=== PATIENT | female | born 1965 | race Two or more races ===

== ENCOUNTER 2025-04-03 03:26 | Inpatient (IN) | payer BC, SELFPAY ==
[2025-04-03] VITALS (18 sets, daily range): BP systolic 116–160; BP diastolic 59–91; PULSE 66–83; RESP 12–97; TEMP 36.2–37.2; O2SAT 92–100; BMI 25.4
--- NOTE | 2025-04-03 03:53 | XR_ITS ---
Examination: Abdomen sonogram, Limited Date and time of exam: April 03, 2025, 0412 hours INDICATIONS: Right upper abdominal pain beginning midnight Technique: Real-time daly scale transabdominal sonographic images of the upper abdomen obtained. Findings: Multiple gallstones Gallbladder wall 0.34 cm no edema Common bile duct 0.3 cm Pancreatic head 2.5 cm Liver 13.7 cm no liver lesions Normal hepatopetal portal venous flow Patent IVC IMPRESSION: Cholelithiasis Minimal thickening of the gallbladder wall 0.34 cm without edema, clinical correlation advised If cholecystitis is a clinical consideration, suggest HIDA scan or MRCP follow-up
--- NOTE | 2025-04-03 03:54 | EKG_ITS ---
[facility] Test Date: 2025-04-03 Pat Name: BASIM VARGAS Department: Room: - Gender: Female [employer] Operator: : 1965 Requested By: Ronnie Dahl Order Number: [id number] Reading MD: Ronnie Dahl Measurements Intervals [place] Rate: 72 P: 14 MT: 165 QRS: -13 QRSD: 95 T: 52 QT: 353 QTc: 388 Interpretive Statements SINUS RHYTHM INCOMPLETE RIGHT BUNDLE BRANCH BLOCK [90+ ms QRS DURATION, TERMINAL R IN V1/V2, 40+ ms S IN I/aVL/V4/V5/V6] NONSPECIFIC T-WAVE ABNORMALITY No previous ECG available for comparison /store/S0/[id number]/ecg/[id number].pdf
--- NOTE | 2025-04-03 03:54 | XR_ITS ---
Examination: CT abdomen and pelvis without contrast. Coronal 3-D reconstructions. Sagittal 2-D reconstructions. Date and time of exam: April 03, 2025, 0514 hours Right upper abdominal pain periumbilical pain today CTDI: vol (mGy): 7.42 DLP: (mGycm): 400 Technique: Axial images of the abdomen have been obtained, 3 mm slice thickness Intravenous contrast material has not been administered. Low dose protocols were performed. One or more of the following dose reduction techniques were used; automated exposure control, adjustment of the mA and/or KV according to patient size, use of iterative reconstruction technique. Findings: Mild opacity right base suspicious for early pneumonia No visualized liver lesions Gallstones, no definite gallbladder wall thickening No pancreatic or adrenal mass No renal or ureteral calculi, no hydronephrosis Aorta normal size Multiple lymph nodes in the pericecal region Normal appendix Mildly prominent left ovary Urinary bladder contracted and grossly intact IMPRESSION: Cholelithiasis, no definite gallbladder wall thickening, please see the gallbladder sonogram report No common bile duct stones noted Multiple lymph nodes seen in the pericecal region seen with mesenteric adenitis, clinical correlation advised Normal appendix No bowel obstruction or diverticulitis
--- NOTE | 2025-04-03 03:55 | PD.EDRME ---
Rapid Medical Screening Exam RME Arrival date/time: 04/03/25 03:26 Chief Complaint: Abdominal Pain Vital signs: Vital Signs Temperature 98.1 F 04/03/25 03:48 Pulse Rate 81 04/03/25 03:48 Respiratory Rate 18 04/03/25 03:48 Blood Pressure 123/59 L 04/03/25 03:48 Pulse Oximetry (%) 99 04/03/25 03:48 Oxygen Delivery Method Room Air 04/03/25 03:48 Vital signs reviewed by provider: Yes RME Narrative: Healthy 59-year-old female complaining of right upper quadrant pain which radiates throughout her abdomen and being unable to stool since last night associated with nausea. Denies any fever, vomiting, dysuria. I briefly performed a screening evaluation to initiate work-up and expedite care. Complete history, physical exam, and plan of care is deferred to the provider in the main ED. Exam: Head: Normocephalic, atraumatic. Respiratory: Normal effort. No respiratory distress or accessory muscle use. Neuro: Speech normal. Skin: Warm, dry, normal color. Psych: Pleasant. Normal affect. Cooperative. Clinical Impression: Abdominal pain
[2025-04-03] MEDS: ONDANSETRON ODT 4 MG TABRAP PO (04:28)
[2025-04-03] MEDS: KETOROLAC INJ 30 MG/ML VIAL IM (04:28)
[2025-04-03 05:00] LABS: Basophils # (Auto) 0.1 Thou/mm3 (0.0-0.2); Basophils % (Auto) 0 % (0-2.5); Eosinophils # (Auto) 0.1 Thou/mm3 (0.0-0.5); Eosinophils % (Auto) 0 % (0-10); Hematocrit 41.6 % (36.0-46.0); Hemoglobin 13.6 g/dL (12.0-16.0); Immature Granulocytes Auto 0.08 Thou/mm3 (0.00-0.00); Lymphocytes # (Auto) 1.5 Thou/mm3 (1.0-4.8); Lymphocytes % (Auto) 7 % (10-50); Mean Corpuscular HGB Conc 32.7 g/dl (31.0-37.0); Mean Corpuscular Hemoglobin 29.1 pg (25.0-35.0); Mean Corpuscular Volume 89 fL (80-100); Monocytes # (Auto) 1.1 Thou/mm3 (0.0-0.8); Monocytes % (Auto) 5 % (0-12); Neutrophils # (Auto) 17.9 Thou/mm3 (1.8-7.7); Neutrophils % (Auto) 87 % (37-80); Nucleated Red Blood Cell # 0.00 Thou/mm3 (0.00-0.00); Nucleated Red Blood Cell % 0 /100 WBC (0); Platelet Count 378 Thou/mm3 (140-440); RDW Standard Deviation 41.9 fL (36.4-46.3); Red Blood Count 4.67 Miln/mm3 (4.00-5.20); White Blood Count 20.7 Thou/mm3 (3.6-11.0)
--- NOTE | 2025-04-03 05:10 | PRELIM_ITS ---
Right upper quadrant abdominal ultrasound with Doppler and wave Doppler spectral analysis. April 03, 2025 0412 hours Clinical history: RUQ pain. Technique: Grayscale and color flow images of the right upper quadrant are provided. Hepatic and portal veins were also imaged with color flow images. Comparison: None available at the time of this report. Findings: The liver is normal in echogenicity. No intrahepatic biliary ductal dilatation. Gallbladder wall thickening. Gallstones. No pericholecystic fluid is demonstrated. The common bile duct is normal in caliber at 2.5 mm. The pancreas is unremarkable to the extent visualized. The imaged portions of the right kidney are within normal limits. The portal vein is patent with hepatopetal flow and normal wave Doppler spectral analysis. Jacobo sign is not available at the time of this report. Impression: Gallstones associated with gallbladder wall thickening, consistent with acute cholecystitis. Report Electronically Signed By: Cain Olivia 04/03/2025 5:10:26 AM [EST]
[2025-04-03 05:11] LABS: Collection Type, Urine Voided
[2025-04-03 05:14] LABS: Alanine Aminotransferase 125 U/L (10-49); Albumin, Serum 4.6 gm/dL (3.5-5.0); Albumin/Globulin Ratio 1.6 (1.2-2.2); Alkaline Phosphatase 151 U/L (46-116); Anion Gap 10 (7-16); Aspartate Amino Transferase 278 U/L (0-34); BUN/Creatinine Ratio 13 Ratio (12-20); Bilirubin,Total 0.7 mg/dL (0.3-1.2); Blood Urea Nitrogen 9 mg/dL (9-23); Calcium 8.8 mg/dL (8.3-10.6); Calcium (Corrected) 8.8 mg/dL (8.5-10.1); Carbon Dioxide 24.6 mMol/L (20.0-31.0); Chloride 106 mMol/L (98-107); Creatinine (Component) 0.7 mg/dL (0.6-1.3); Estimated Creatinine Clearance 72.6 mL/min (>60); Globulin 2.8 gm/dL (2.3-3.5); Glucose 148 mg/dL (74-106); Lipase 47 U/L (12-53); Osmolality,Calculated 282 (275-295); Potassium 3.8 mMol/L (3.4-5.1); Sodium 141 mMol/L (136-145); Total Protein 7.4 gm/dL (5.7-8.2); eGFR > 60 See Note
--- NOTE | 2025-04-03 05:20 | PC.NURSE ---
PT CAME TO ER FOR C/O RIGHT UPPER ABD PAIN X 2 DAYS, NAUSEA, AND BEING CONSTIPATED.
[2025-04-03 05:22] LABS: Amorphous Crystals,Urine Present (Absent); Bacteria,Urine 1+; Bilirubin,Urine Negative (Negative); Blood,Urine Negative (Negative); Calcium Oxalate Crystals,Urine Rare; Color,Urine Yellow (Lt Yel-Yel); Glucose, Urine 3+ (Negative); Ketones,Urine 2+ (Negative); Leukocyte Esterase,Urine Positive (Negative); Nitrite,Urine Positive (Negative); PH,Urine 6.0 (5.0-7.0); Protein,Urine Trace (Neg - Trace); RBC,Urine 26 /hpf (0-3); Specific Gravity,Urine 1.024 (1.001-1.035); Squamous Epithelial Cell,Urine 10 /hpf (0-5); Uric Acid Crystals,Urine 4+; Urobilinogen,Urine 2.0 mg/dL (0.0-1.0); WBC,Urine 7 /hpf (0-5)
[2025-04-03 05:27] LABS: Clarity,Urine Turbid (Clear/Hazy)
--- NOTE | 2025-04-03 05:35 | EDNOTE_ITS ---
ED Abdominal Pain RME/HPI General Chief Complaint: Abdominal Pain Stated complaint: RIGHT UPPER ABD PAIN Arrival date/time: 04/03/25 03:26 RME / HPI RME / HPI narrative: Healthy 59-year-old female complaining of right upper quadrant pain which radiates throughout her abdomen and being unable to stool since last night associated with nausea. Denies any fever, vomiting, dysuria. I briefly performed a screening evaluation to initiate work-up and expedite care. Complete history, physical exam, and plan of care is deferred to the provider in the main ED. 59-year-old female without significant past medical history presents with right upper quadrant abdominal pain worse over the last couple of days. She denies any fever. Some nausea but no vomiting. She has been constipated. No prior episodes. She denies previous abdominal surgery. Exam: Head: Normocephalic, atraumatic. Respiratory: Normal effort. No respiratory distress or accessory muscle use. Neuro: Speech normal. Skin: Warm, dry, normal color. Psych: Pleasant. Normal affect. Cooperative. Impression: Abdominal pain Related Data Previous Rx's ?Medication ?Instructions ?Recorded Hydrocodone/Acetaminophen * (NORCO 1 tab PO Q4H PRN PA IN #8 tabs 03/31/16 5/325 *) Allergies Allergy/AdvReac Type Severity Reaction Status Date / Time No Known Allergies Allergy Verified 04/03/25 03:27 Review of Systems Review of Systems Systems Reviewed: All systems reviewed, normal except as documented ED Exam Narrative Physical exam: Generally patient is alert in no obvious distress, heart regular rate and rhythm, lungs clear to auscultation equal bilaterally, abdomen soft bowel sounds present nondistended right upper quadrant abdominal tenderness with questionable Jacobo sign. No rebound tenderness., Skin is warm pale and dry, neurologic exam shows [place] Coma Scale of 15 without focal motor deficit Course Quality Measures none Orders Category Date Time Status COVID-19 Screening Questionnaire NOW Care 04/03/25 05:34 Active EKG (ED ONLY) *Do not use* NOW Care 04/03/25 03:55 Completed IV [Insert IV] NOW Care 04/03/25 05:33 Active NPO NOW Care 04/03/25 03:54 Active Diet NPO (NOW) Diet 04/03/25 03:[address] abdomen pelvis wo con Stat Exams 04/03/25 03:54 Taken EKG (ED Only) Stat Exams 04/03/25 03:54 Draft US gall bladder Stat Exams 04/03/25 03:53 Taken CBC Stat Lab 04/03/25 04:44 Completed CMP [Comprehensive Metabolic Panel] Stat Lab 04/03/25 04:44 Results HCG,Qualitative Serum Stat Lab 04/03/25 04:44 Results Lipase Stat Lab 04/03/25 04:44 Results Urinalysis Stat Lab 04/03/25 04:56 Completed Urine Culture Stat Lab 04/03/25 04:56 Received Ketorolac Inj [Toradol Inj] Med 04/03/25 03:53 Discontinued 30 mg IM X1 ONE Ondansetron Odt [Zofran Odt] Med 04/03/25 03:53 Discontinued 4 mg PO X1 ONE cefTRIAXone/D5w 1gm IV premix [Rocephin/D5w 1gm IV Med 04/03/25 05:21 Active premix] 1 gm in 50 ml IV X1 metroNIDAZOLE/NS 500 MG IVPB [Flagyl 500 mg IV] Med 04/03/25 05:21 Active 500 mg in 100 ml IV X1 Vital Signs Vital signs: Vital Signs Temperature 98.1 F 04/03/25 03:48 Pulse Rate 81 04/03/25 03:48 Respiratory Rate 18 04/03/25 03:48 Blood Pressure 123/59 L 04/03/25 03:48 Pulse Oximetry (%) 99 04/03/25 03:48 Oxygen Delivery Method Room Air 04/03/25 03:48 Abdominal Pain MDM MDM Narrative MDM Narrative:: White count is 20,700. Gallbladder ultrasound shows gallstones with thickened gallbladder wall without roshni-cholecystic fluid., Bile duct was normal in size at 2.5 mm. Total bilirubin is normal. AST and ALT are only slightly elevated as is the alkaline phosphatase. Patient appears to have cholelithiasis with cholecystitis. Patient was given Rocephin 1 g IV and Flagyl 500 mg IV. I consulted general surgery, Dr. Rodríguez who agrees to consult on the patient. I also discussed the case with the hospitalist and the patient will be admitted to the hospital for further treatment and evaluation. Patient data External records reviewed:: Other (specify) Clinical information provided by:: none Social determinants that could affect healthcare access:: none Patient has the following chronic illnesses:: None How is presenting disease/condition affected by chronic disease/condition?: no chronic disease Evaluation data The following diagnostics were reviewed and interpreted by me:: other (specify) Lab and/or radiology exams considered but not ordered:: None Interpretation Summary: None Medications / Prescriptions Medications or Prescriptions considered but not ordered:: None Medication administrations:: Medication Administration History Ceftriaxone Sodium/Dextrose (Rocephin/D5w 1gm Iv Premix) 1 gm in 50 mls @ 100 mls/hr IV X1 ONE Stop: 04/03/25 05:50 Metronidazole (Flagyl 500 Mg Iv) 500 mg in 100 mls @ 100 mls/hr IV X1 ONE Stop: 04/03/25 06:20 Discontinued Medications Ketorolac Tromethamine (Ketorolac Inj 30 Mg/Ml Vial) 30 mg IM X1 ONE Stop: 04/03/25 03:54 Last Admin: 04/03/25 04:28 Dose: 30 mg Documented By: GIGI Ondansetron HCl (Ondansetron Odt 4 Mg Tabrap) 4 mg PO X1 ONE; Protocol Stop: 04/03/25 03:54 Last Admin: 04/03/25 04:28 Dose: 4 mg Documented By: GIGI None Consultations Consultation(s) initiated? (list below): Yes Diagnosis Differential diagnosis abdominal pain: other Most likely diagnosis given after review of the tests above:: None Admission Indicated Admission indicated?: indicated Admission Request Was there a request for admission?: Yes Admission Attestation Admission request attestation: Discussed case with [] from Hospitalist service regarding admission. Discussed patients ED course, exam findings, labs, and radiology results. The Hospitalist [agrees,declines] to accept the patient for admission. Disposition Plan Disposition Plan: Admit Discharge Plan Plan Patient Disposition: Admit Acute Care w/in Hospital Prescriptions/Referrals Prescriptions/Med Rec: No Action Hydrocodone/Acetaminophen * (NORCO 5/325 *) 1 TAB tablet 1 tab PO Q4H PRN (Reason: PAIN) Qty: 8 0RF Rx Instructions: FOR PAIN Referrals: Jasper Farrar MD [Primary Care Provider, Family Practice] - In 1 week Problem List Clinical Impression: Calculous cholecystitis Patient/Caregiver Discharge Instructions Print Language: [place] Leonean Stand Alone Forms: Phyllis Award Info., Patient Portal Info Letter
[2025-04-03] MEDS: cefTRIAXone/D5w 1gm IV premix 1 GM/50 ML BAG IV (05:38)
[2025-04-03 05:45] LABS: HCG,Qualitative Serum Negative
[2025-04-03] MEDS: metroNIDAZOLE/NS 500 MG IVPB 500 MG/100 ML BAG 100 MG IV (06:05)
--- NOTE | 2025-04-03 06:05 | ESHP_ITS ---
<Statement entered by Ricky Stevenson MD - 04/03/25 20:22> I have discussed and was present for the essential components of the history, physical examination, diagnosis, and treatment plan with the resident. I agree with the patient's care as documented by the resident and amended herein by me. Ricky Stevenson MD FACP. Documentation for date of: 04/03/25 HPI History of Present Illness Chief complaint: stomach pain History of present illness: Carole Freire is 59 yr female with no significant PMH presenting to ED with complaint of RUQ pain since last night. Pain was 8/10, non radiating, constant, no associated nausea or vomiting. Patient stated that she had difficulty in standing due to the pain with some shaking. But denied any fever, no diarrhea, dysuria, headache. Has decreased appetite due to the pain. Typically eats home cooked food. This pain has occured previously. In ED, vitals were stable. Labs remarkable for leukocytosis of 20. Bilirubin 0.7, AST 278, ALT 125, ALP 151, lipase 47. Preliminary read for ultrasound abdomen consistent with acute cholecystitis. CT abdomen pelvis is pending. UA reflecting UTI but patient denies any dysuria. Dr. Rodríguez was consulted. Patient admitted for acute cholecystitis and started on IV antibiotics. Surgery will assess in the morning for possible cholecystectomy. PMH: None. 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 Denies any smoking or drinking. Review of Systems Review of Systems Systems Reviewed: All systems reviewed, normal except as documented Exam Vital Signs Temp Pulse Resp BP Pulse Ox O2 Del Method 98.1 F 81 18 123/59 L 99 Room Air 04/03/25 03:48 04/03/25 03:48 04/03/25 03:48 04/03/25 03:48 04/03/25 03:48 04/03/25 03:48 Narrative Exam General: Alert and oriented x3. No acute distress, cooperative HEENT: NCAT, No JVD noted. Mucosa moist. Pupils are equal and reactive to light bilaterally Cardiovascular: Normal S1 and S2. Regular rate and rhythm. Respiratory: Lungs are clear to auscultation bilaterally. No wheezing or crackles heard. Abdomen: Soft, epigatric tenderness, not distended, normal bowel sounds. Negative nguyễn sign. Skin: Warm to touch, dry, no rashes noted. No jaundice. Musculoskeletal: No gross injuries. Able to move all 4 extremities. No pitting edema Neuro: Alert and oriented x3. No focal neuro deficits. Psych: Normal affect and mood Results: Labs 04/03/25 04:44 04/03/25 04:44 Labs: Short CBC 04/03/25 Range/Units 04:44 WBC 20.7 H (3.6-11.0) Thou/mm3 Hgb 13.6 (12.0-16.0) g/dL Hct 41.6 (36.0-46.0) % Plt Count 378 (140-440) Thou/mm3 BMP 04/03/25 04:44 Sodium 141 Potassium 3.8 Chloride 106 Carbon Dioxide 24.6 BUN 9 Creatinine 0.7 Glucose 148 H Calcium 8.8 Liver Function 04/03/25 Range/Units 04:44 Total Bilirubin 0.7 (0.3-1.2) mg/dL AST 278 H (0-34) U/L ALT 125 H (10-49) U/L Alkaline Phosphatase 151 H (46-116) U/L Albumin 4.6 (3.5-5.0) gm/dL Urine 04/03/25 Range/Units 04:56 Urine Color Yellow (Lt Yel-Yel) Urine Clarity Turbid A (Clear/Hazy) Urine pH 6.0 (5.0-7.0) Ur Specific [place] 1.024 (1.001-1.035) Urine Protein Trace (Neg - Trace) Urine Glucose (UA) 3+ A (Negative) Quality Measures Quality Measures none Medications Home Medications and Allergies Home Medications ?Medication ?Instructions ?Recorded ?Confirmed ?Type No Known Home Medications 04/03/2503/17 History Allergies Allergy/AdvReac Type Severity Reaction Status Date / Time No Known Allergies Allergy Verified 04/03/25 03:27 Visit Medications Acetaminophen (Acetaminophen 325 Mg Tablet) 650 mg PO Q6H PRN PRN Reason: Fever >100.4 or pain 1-3 Stop: 05/03/25 05:57 Metronidazole (Flagyl 500 Mg Iv) 500 mg in 100 mls @ 100 mls/hr IV X1 ONE Stop: 04/03/25 06:20 Sodium Chloride (Ns) 1,000 mls @ 100 mls/hr IV .Q10H SUMEET Stop: 04/03/25 15:59 Metronidazole (Flagyl 500 Mg Iv) 500 mg in 100 mls @ 200 mls/hr IV Q8HR SUMEET Stop: 04/10/25 06:02 Ciprofloxacin/Dextrose (Cipro Ivpb) 400 mg in 200 mls @ 200 mls/hr IV Q12HR SUMEET Stop: 04/10/25 17:59 Morphine Sulfate (Morphine Sulf Inj 4 Mg/Ml Vial) 2 mg IVP Q4HR PRN PRN Reason: PAIN SCALE 7-10 (Severe Stop: 04/08/25 05:57 Ondansetron HCl (Ondansetron Inj 2 Mg/Ml Inj 2 Ml) 4 mg IVP Q6H PRN; Protocol PRN Reason: NAUSEA OR VOMITING Stop: 05/03/25 05:57 Sennosides (Senna Tablet) 1 tab PO QDAY PRN; Protocol PRN Reason: constipation Stop: 05/03/25 05:57 Discontinued Medications Ceftriaxone Sodium/Dextrose (Rocephin/D5w 1gm Iv Premix) 1 gm in 50 mls @ 100 mls/hr IV X1 ONE Stop: 04/03/25 05:50 Last Admin: 04/03/25 05:38 Dose: 100 mls/hr Ketorolac Tromethamine (Ketorolac Inj 30 Mg/Ml Vial) 30 mg IM X1 ONE Stop: 04/03/25 03:54 Last Admin: 04/03/25 04:28 Dose: 30 mg Ondansetron HCl (Ondansetron Odt 4 Mg Tabrap) 4 mg PO X1 ONE; Protocol Stop: 04/03/25 03:54 Last Admin: 04/03/25 04:28 Dose: 4 mg Assessment & Plan Plan Carole Freire is 59 yr female with no significant PMH presenting to ED with complaint of RUQ pain since last night. Preliminary read for ultrasound abdomen consistent with acute cholecystitis. Dr. Rodríguez was consulted. Patient admitted for acute cholecystitis and started on IV antibiotics. #Acute cholecystitis UltrasoundU/S gallbladder--Gb wall thickening, gallstones present, CBD 2.5mm. Bilirubin 0.7, AST 278, ALT 125, ALP 151, lipase 47. Not septic, WBC 20 RUQ pain on exam, negative nguyễn, no jaundice. -NPO -Dr. Rodríguez consulted, appreciate recommendations -IV ciprofloxacin 400 BID -IV flagyl 500mg q8hr -IV morphine 2mg q4hr pain -Zofran prn -CT a/p pending -maintenance fluids Health maintenance: Dispo: medsurg, acute delonte FEN: NPO DVT prophylaxis: SCDs CODE STATUS: Full code The patient's management plan was discussed with my attending physician Dr. Stevenson. Cathy Peng, PGY-2
--- NOTE | 2025-04-03 06:12 | PRELIM_ITS ---
CT scan of the abdomen and pelvis without intravenous contrast (axial sections with sagittal and coronal reformats) April 03, 2025 0514 hours Clinical History: Periumbilical pain. Correlated with prior Ultrasound of April 03, 2025. Findings: The lung bases are clear. The liver, pancreas, spleen, kidneys and adrenals are unremarkable on this noncontrast study. No evidence of bowel obstruction. The appendix is within normal limits. There is no mesenteric or retroperitoneal adenopathy. The urinary bladder is nondistended, limited evaluation. There is no free fluid or free air. The osseous structures are unremarkable. Gallstones. Gallbladder wall thickening. Pericholecystic fat stranding. Prominent left ovary measuring 3.5 cm. Impression: Findings are highly suspicious for acute calculous cholecystitis. Prominent left ovary, consider correlation with pelvic ultrasound if clinically indicated. Report Electronically Signed By: Cain Olivia 04/03/2025 6:12:30 AM [EST]
[2025-04-03] MEDS: SODIUM CHLORIDE 0.9% 1000 ML 1,000 ML 100 ML IV (06:15)
[2025-04-03 06:34] LABS: Magnesium 1.8 mg/dL (1.6-2.6)
[2025-04-03 06:37] LABS: INR 1.0 (0.9-1.3); Partial Thromboplastin Time 24.5 Seconds (22.0-36.0); Prothrombin Time 10.2 Seconds (9.0-12.2)
[2025-04-03] MEDS: CIPROFLOXACIN/D5w 400 MG IVPB 400 MG/200 ML BAG 200 MG IV (07:50)
--- NOTE | 2025-04-03 07:52 | PD.RESDS ---
Planned Discharge Date 04/03/25 DS: Providers Provider Date of admission: 04/03/25 05:58 Primary care physician: Jasper Farrar MD Admitting Provider: Ricky Stevenson MD Attending Provider on Admission: Ricky Stevenson MD Consults: 04/03/25 06:02 Consult to General Surgery Routine Comment: cholecystitis Consulting Provider: Jewels Rodríguez Attending Provider on DC: Shirlene Harmon MD Discharging Provider: Shirlene Harmon MD Hospital Course Hospital Course Hospital course: Carole Freire is 59 yr female with no significant PMH presenting to ED with complaint of RUQ pain since last night. Pain was 8/10, non radiating, constant, no associated nausea or vomiting. Patient stated that she had difficulty in standing due to the pain with some shaking. But denied any fever, no diarrhea, dysuria, headache. Has decreased appetite due to the pain. Typically eats home cooked food. This pain has occured previously. In ED, vitals were stable. Labs remarkable for leukocytosis of 20. Bilirubin 0.7, AST 278, ALT 125, ALP 151, lipase 47. Preliminary read for ultrasound abdomen consistent with acute cholecystitis. CT abdomen pelvis is pending. UA reflecting UTI but patient denies any dysuria. Dr. Rodríguez was consulted. Patient admitted for acute cholecystitis and started on IV antibiotics. Surgery will assess in the morning for possible cholecystectomy. PMH: None. 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 Denies any smoking or drinking. Time Spent with Patient Time attestation: Total time spent providing and/or coordinating discharge services: Exam Vital Signs Temp Pulse Resp BP Pulse Ox O2 Del Method 99.0 F 72 22 H 160/80 H 96 Room Air 04/03/25 06:13 04/03/25 07:00 04/03/25 07:00 04/03/25 07:00 04/03/25 07:00 04/03/25 06:13 Discharge Plan Prescriptions/Referrals Prescriptions/Med Rec: No Action No Known Home Medications Referrals: Jasper Farrar MD [Primary Care Provider, Family Practice] Patient/Caregiver Discharge Instructions Print Language: Maltese
--- NOTE | 2025-04-03 08:18 | PC.NURSE ---
report called to mandish rn on m/s floor. nurse will resume care. rm 350
--- NOTE | 2025-04-03 09:08 | ESPR_ITS ---
<Statement entered by Huy Joseph MD - 04/09/25 15:19> I reviewed above note and agree with findings and plans. I have also personally examined the patient with medicine team and went over assessment and plan with medical team including financial internship and resident physician. <Statement entered by Jennifer Alexander MD - 04/03/25 20:02> Pt is an overnight admission, scheduled for cholecystectomy today. Pt continues to have significant RUQ pain. remained afebrile. Patient was seen and examined by me personally. I have directly supervised and reviewed documentation by the team resident and agree with its findings. ------- Plan of care was discussed with the attending, Dr. Jake Alexander, PGY-2 Documentation for date of: 04/03/25 Subjective Subjective Interval history: Patient admitted overnight for cholelithiasis/cholecystitis. Patient reports RUQ pain. Had biliary colic for 1 week, RUQ progressively worsening and constant x1 day. No N/V. Last PO intake yesterday at dinner time. Exam Vital Signs Temp Pulse Resp BP Pulse Ox O2 Del Method 97.9 F 82 20 150/90 H 98 Room Air 04/03/25 09:05 04/03/25 09:05 04/03/25 09:05 04/03/25 09:05 04/03/25 09:05 04/03/25 09:05 Narrative Exam General: No acute distress, well nourished Eye: PERRL, EOMI, normal conjunctiva, no scleral icterus HENT: Normocephalic, atraumatic, normal hearing, moist oral mucosa Neck: Supple, non-tender, no JVD, no lymphadenopathy Lungs: Clear to auscultation bilaterally, non-labored respirations, symmetric chest rise, no use of accessory muscles Heart: Normal S1 and S2, no S3 or S4 appreciated. Normal rate and regular rhythm, no murmurs, rubs gallops, or edema. Peripheral pulses intact bilaterally, capillary refill brisk distally Abdomen: Soft, RUQ TTP, non-distended, normal bowel sounds. No guarding or rebound tenderness. Musculoskeletal: Normal range of motion and strength, no tenderness or swelling Skin: Skin is warm, dry, no rashes or lesions. Neurologic: Alert, awake and oriented x3. CN II-XII grossly intact. No focal neuro deficits. No signs of meningeal irritation noted. Psychiatric: Cooperative, appropriate mood and affect Objective Labs 04/03/25 04:44 04/03/25 04:44 Labs: Laboratory Results - last 24 hr 04/03/25 04/03/25 04:44 04:56 WBC 20.7 H RBC 4.67 Hgb 13.6 Hct 41.6 MCV 89 MCH 29.1 MCHC 32.7 RDW Std Deviation 41.9 Plt Count 378 Neut % (Auto) 87 H Lymph % (Auto) [address] [place] % (Auto) 5 Eos % (Auto) 0 Baso % (Auto) 0 Neut # (Auto) 17.9 H Lymph # (Auto) 1.5 [place] # (Auto) 1.1 H Eos # (Auto) 0.1 Baso # (Auto) 0.1 Immature Gran # (Auto) 0.08 H Absolute Nucleated RBC 0.00 Immature Gran % 0 Nucleated RBC % 0 PT 10.2 INR 1.0 APTT 24.5 Sodium 141 Potassium 3.8 Chloride 106 Carbon Dioxide 24.6 Anion Gap 10 BUN 9 Creatinine 0.7 Estim Creat Clear Calc 72.6 eGFR > 60 BUN/Creatinine Ratio 13 Glucose 148 H Calculated Osmolality 282 Calcium 8.8 Corrected Calcium 8.8 Magnesium 1.8 Total Bilirubin 0.7 AST 278 H ALT 125 H Alkaline Phosphatase 151 H Total Protein 7.4 Albumin 4.6 Globulin 2.8 Albumin/Globulin Ratio 1.6 Lipase 47 HCG, Qual Negative Ur Collection Type Voided Urine Color Yellow Urine Clarity Turbid A Urine pH 6.0 Ur Specific [place] 1.024 Urine Protein Trace Urine Glucose (UA) 3+ A Urine Ketones 2+ A Urine Blood Negative Urine Nitrite Positive Urine Bilirubin Negative Urine Urobilinogen (Auto) 2.0 Ur Leukocyte Esterase Positive Urine RBC 26 H Urine WBC 7 H Ur Squamous Epith Cells 10 H Calcium Oxalate Crystal Rare Uric Acid Crystals 4+ A Amorphous Crystals Present A Urine Bacteria 1+ A Quality Measures Quality Measures none Assessment & Plan Assessment Current Active Medications: Generic Name Dose Route Start Last Admin Trade Name Freq PRN Reason Stop Dose Admin Acetaminophen 650 mg 04/03/25 05:58 Acetaminophen 325 Mg Tablet PO 05/03/25 05:57 Q6H PRN Fever >100.4 or pain 1-3 Sodium Chloride 1,000 mls @ 100 mls/hr 04/03/25 06:00 04/03/25 06:15 Ns IV 04/03/25 15:59 100 mls/hr .Q10H SUMEET Administration Metronidazole 500 mg in 100 mls @ 200 mls/hr 04/03/25 14:00 Flagyl 500 Mg Iv IV 04/10/25 06:02 Q8HR SUMEET Ciprofloxacin/Dextrose 400 mg in 200 mls @ 200 mls/hr 04/03/25 07:15 04/03/25 07:50 Cipro Ivpb IV 04/10/25 07:14 200 mls/hr Q12HR SUMEET Administration Morphine Sulfate 2 mg 04/03/25 05:58 Morphine Sulf Inj 4 Mg/Ml Vial IVP 04/08/25 05:57 Q4HR PRN PAIN SCALE 7-10 (Severe Ondansetron HCl 4 mg 04/03/25 05:58 Ondansetron Inj 2 Mg/Ml Inj 2 Ml IVP 05/03/25 05:57 Q6H PRN NAUSEA OR VOMITING Protocol Sennosides 1 tab 04/03/25 05:58 Senna Tablet PO 05/03/25 05:57 QDAY PRN constipation Protocol Plan Carole Freire is 59 yr female with no significant PMH who presented to the ED on 04/02 with progressive RUQ pain. Admitted for acute cholelithiasis/cholecystitis, s/p cholecystectomy with Dr. Rodríguez. #Acute cholecystitis Initial presentation: Biliary colic for 1 week, RUQ progressively worsening and constant x1 day. No N/V. Gallbladder US: Cholelithiasis. CBD 0.[address] a/p: cholelithiasis, cholecystitis, pericecal lymphadenopathy Received IV Rocephin (ED), cipro and flagyl x 1 dose each prior to cholecystectomy 04/03: Cholecystectomy with Dr. Rodríguez Plan: - Dr. Rodríguez consulted, appreciate recommendations - Clear liquid diet - advance as tolerated - Zofran prn - CTM vitals, CBC #UTI Asymptomatic Plan: - Pending urine cx Checklist Dispo: advancing diet as tolerated Lines: PIV Diet: Clear liquid diet - advance as tolerated Bowel Reg: senna PRN VTE ppx: SCDs GI ppx: n/a Pain mgmt: Tylenol PO PRN, [place] 5 mg PO q4h Code status: full Plan discussed with Dr. Enrico Alexander and Dr. Jake Mar MD PGY1
--- NOTE | 2025-04-03 09:47 | PD.SURCONS ---
HPI Consult details History of present illness: 59F presenting with abdominal pain. Pt reports she developed RUQ pain yesterday similar to episodes she has experienced after eating, though this time it was not provoked by a meal. Pain was 8/10 and associated with shortness of breath but she denies nausea, fever and diarrhea. At the moment pt feels pain is 2/10, she is a little hungry but afraid to eat and provoke the pain. In ER her WBC is 20, LFTs elevated with normal bilirubin and US shows cholelithiasis but no cholecystitis PMH: None PSHx: None Meds: None Allergies: NKDA Social hx: Nonsmoker Review of Systems Review of Systems ROS Unobtainable: All systems reviewed & no additional complaints except as documented Meds Home Medications and Allergies Home Medications ?Medication ?Instructions ?Recorded ?Confirmed ?Type No Known Home Medications 04/03/25 04/03/25 History Allergies Allergy/AdvReac Type Severity Reaction Status Date / Time No Known Allergies Allergy Verified 04/03/25 03:27 Exam Vital Signs Temp Pulse Resp BP Pulse Ox O2 Del Method 97.9 F 82 20 150/90 H 98 Room Air 04/03/25 09:05 04/03/25 09:05 04/03/25 09:05 04/03/25 09:05 04/03/25 09:05 04/03/25 09:05 Constitutional Constitutional: no acute distress Routine Respiratory Exam Respiratory: Present no resp distress Routine Abdominal Exam Abdominal: Present soft; Absent tenderness (negative Jacobo's sign) or distended Results Results: Laboratory Laboratory results: results reviewed Results: Imaging CT scan - abdomen: report reviewed US - abdomen: report reviewed Assessment & Plan Plan 59F otherwise healthy presenting with signs and symptoms of biliary colic, possibly early acute cholecystitis based on leukocytosis and borderline wall thickening. I explained that surgery is not necessarily urgent but can be done during this admission. I enumerated benefits/risks including need for conversion to open, bleeding, infection possibly requiring a drainage procedure as well as the possibility of biliary injury requiring major reconstructive surgery which would require transfer to a tertiary hospital. I also let her know she may have postoperative diarrhea. All questions were answered and pt is agreeable to proceeding OR today for laparoscopic cholecystectomy, possible open
--- NOTE | 2025-04-03 15:32 | SUR.PHASEI ---
1532: Pt. wakes to name then drifts back to sleep, vitals stable, breathing unlabored, no complaint of pain or nausea, x4 dermabond sites to ABD CDI, no active bleed noted, report received from MD Zurita and Martinez VALVERDE.
--- NOTE | 2025-04-03 15:38 | PD.SUROPNT ---
Date of Procedure 04/03/25 Pre Op Diagnosis Acute cholecystitis Post Op Diagnosis Same Procedure Laparoscopic cholecystectomy Findings Gallbladder encased in fat with large stones Procedure Description After discussion of risks and benefits, patient was brought to the operating room, SCDs were placed and general anesthesia was induced. She received preoperative antibiotics and was prepped and draped in usual sterile fashion. After timeout a supraumbilical incision was made with a #15 blade and the skin was elevated with towel clamps. Proper positioning was confirmed with a drop test and the abdomen was insufflated to 15 mmHg. The Veress needle was then exchanged for a 5 mm camera using a Visiport technique. There were no signs of injury from the point of entry. 3 additional ports were placed under direct vision, one 5 mm at the right anterior axillary line, one 5 mm right subcostal and one 12 mm at the epigastrium. Patient was placed in reverse Trendelenburg. The fundus of the gallbladder was grasped and retracted cephalad and the infundibulum was grasped and retracted laterally. The lower third of the gallbladder was removed from the gallbladder bed using electrocautery and the hepatocystic triangle was cleared of all fat and fibrous tissue using blunt dissection. Ultimately the critical view of safety was achieved and 2 and only 2 structures were seen entering the gallbladder. The cystic duct and cystic artery were clipped and transected in the usual fashion. The gallbladder was removed from the gallbladder bed using electrocautery. There was some oozing from the gallbladder bed which was controlled with direct pressure and electrocautery including the spatula device. Hemostasis was reinforced with Surgicel powder. The specimen was removed in an Endo Catch bag via the epigastric port and the epigastric fascia was closed with a 0 Vicryl suture using a Mono-Ximena. Counts were confirmed correct. Pneumoperitoneum was released and ports were removed under direct vision. Incisions were irrigated and infiltrated with half percent Marcaine for a total of 30 cc and closed with 4-0 Monocryl. Incisions were reinforced with Dermabond. Patient was extubated and brought to PACU in stable condition Pathology / specimen Other (Gallbladder) Estimated Blood Loss 150 Surgeon Jewels Rodríguez MD Surgical Staff Operation Date: 04/03/25 15:00 Case Staff Anesthesiologist: Nik Mckeon Anesthesiologist: Jamari Zurita RN First Assistant: Flori Evans RN First Assistant: Alexandra Sung
[2025-04-03] MEDS: fentaNYL CIT INJ 50 mCg/ML AMP 2ML 25 MCG IVP ×4 (15:50→16:09)
--- NOTE | 2025-04-03 16:28 | SUR.PHASEI ---
1628: Pt. AAOx4, vitals stable, breathing unlabored, complaint of pain 3/10, no complaint of nausea, x4 dermabond sites to ABD CDI, no active bleed noted, gave report to Celso VALVERDE prior to transfer to room 350. Family made aware of transfer to room.
[2025-04-03] MEDS: HYDROcodone/APAP 5/325 TABLET 1 TAB PO ×2 (17:00→23:40)
[2025-04-04] VITALS (7 sets, daily range): BP systolic 120–147; BP diastolic 60–79; PULSE 66–81; RESP 16–96; TEMP 36.2–36.9; O2SAT 92–97
[2025-04-04 08:42] LABS: Basophils # (Auto) 0.0 Thou/mm3 (0.0-0.2); Basophils % (Auto) 0 % (0-2.5); Eosinophils # (Auto) 0.0 Thou/mm3 (0.0-0.5); Eosinophils % (Auto) 0 % (0-10); Hematocrit 37.4 % (36.0-46.0); Hemoglobin 12.4 g/dL (12.0-16.0); Immature Granulocytes Auto 0.05 Thou/mm3 (0.00-0.00); Lymphocytes # (Auto) 1.5 Thou/mm3 (1.0-4.8); Lymphocytes % (Auto) 8 % (10-50); Mean Corpuscular HGB Conc 33.2 g/dl (31.0-37.0); Mean Corpuscular Hemoglobin 29.2 pg (25.0-35.0); Mean Corpuscular Volume 88 fL (80-100); Monocytes # (Auto) 0.9 Thou/mm3 (0.0-0.8); Monocytes % (Auto) 5 % (0-12); Neutrophils # (Auto) 15.9 Thou/mm3 (1.8-7.7); Neutrophils % (Auto) 87 % (37-80); Nucleated Red Blood Cell # 0.00 Thou/mm3 (0.00-0.00); Nucleated Red Blood Cell % 0 /100 WBC (0); Platelet Count 360 Thou/mm3 (140-440); RDW Standard Deviation 42.5 fL (36.4-46.3); Red Blood Count 4.25 Miln/mm3 (4.00-5.20); White Blood Count 18.3 Thou/mm3 (3.6-11.0)
[2025-04-04 09:00] LABS: Alanine Aminotransferase 1084 U/L (10-49); Albumin, Serum 4.4 gm/dL (3.5-5.0); Albumin/Globulin Ratio 1.6 (1.2-2.2); Alkaline Phosphatase 213 U/L (46-116); Anion Gap 11 (7-16); Aspartate Amino Transferase 991 U/L (0-34); BUN/Creatinine Ratio 11 Ratio (12-20); Bilirubin,Total 2.8 mg/dL (0.3-1.2); Blood Urea Nitrogen 9 mg/dL (9-23); Calcium 9.1 mg/dL (8.3-10.6); Calcium (Corrected) 9.1 mg/dL (8.5-10.1); Carbon Dioxide 23.4 mMol/L (20.0-31.0); Chloride 106 mMol/L (98-107); Creatinine (Component) 0.8 mg/dL (0.6-1.3); Estimated Creatinine Clearance 65.7 mL/min (>60); Globulin 2.8 gm/dL (2.3-3.5); Glucose 157 mg/dL (74-106); Osmolality,Calculated 281 (275-295); Potassium 4.1 mMol/L (3.4-5.1); Sodium 140 mMol/L (136-145); Total Protein 7.2 gm/dL (5.7-8.2); eGFR > 60 See Note
--- NOTE | 2025-04-04 09:21 | PD.SURPROG ---
Documentation for date of: 04/04/25 Subjective Subjective Brief History: 59F presenting with abdominal pain. Pt reports she developed RUQ pain yesterday similar to episodes she has experienced after eating, though this time it was not provoked by a meal. Pain was 8/10 and associated with shortness of breath but she denies nausea, fever and diarrhea. At the moment pt feels pain is 2/10, she is a little hungry but afraid to eat and provoke the pain. In ER her WBC is 20, LFTs elevated with normal bilirubin and US shows cholelithiasis but no cholecystitis PMH: None PSHx: None Meds: None Allergies: NKDA Social hx: Nonsmoker Narrative: Pain controlled, no nausea but has not yet passed gas, tolerating clears Exam Vital Signs Temp Pulse Resp BP Pulse Ox O2 Del Method O2 Flow Rate 97.8 F 78 18 134/79 H 92 L Room Air 4 04/04/25 07:53 04/04/25 07:53 04/04/25 07:53 04/04/25 07:53 04/04/25 07:53 04/04/25 07:53 04/03/25 15:47 Constitutional Constitutional: no acute distress Routine Respiratory Exam Respiratory: Present no resp distress Results Results: Laboratory Laboratory results: results reviewed Assessment & Plan Plan 59F otherwise healthy presenting with signs and symptoms of biliary colic/early acute cholecystitis s/p lap delonte 04/03, recovering well overall. Postop labs are noted, not unexpected in the setting of extensive cauterization of the gallbladder bed. As pt is clinically well would not pursue any further workup for now OK for dc from my standpoint with strict return precautions (worsening pain, nausea/vomiting, fever or jaundice) PROCEDURES: Procedures Laparoscopic cholecystectomy
--- NOTE | 2025-04-04 10:03 | PD.RESDS ---
Planned Discharge Date 04/04/25 DS: Providers Provider Date of admission: 04/03/25 05:58 Primary care physician: Jasper Farrar MD Admitting Provider: Ricky Stevenson MD Attending Provider on Admission: Ricky Stevenson MD Consults: 04/03/25 06:02 Consult to General Surgery Routine Comment: cholecystitis Consulting Provider: Jewels Rodríguez Attending Provider on DC: Juan Richmond DO Discharging Provider: Juan Richmond DO Hospital Course Hospital Course Hospital course: Patient admitted overnight for cholelithiasis/cholecystitis. Patient reports RUQ pain. Had biliary colic for 1 week, RUQ progressively worsening and constant x1 day. No N/V. Last PO intake yesterday at dinner time. Time Spent with Patient Time attestation: Total time spent providing and/or coordinating discharge services: Exam Vital Signs Temp Pulse Resp BP Pulse Ox O2 Del Method O2 Flow Rate 97.8 F 78 18 134/79 H 92 L Room Air 4 04/04/25 07:53 04/04/25 07:53 04/04/25 07:53 04/04/25 07:53 04/04/25 07:53 04/04/25 07:53 04/03/25 15:47 Discharge Plan Prescriptions/Referrals Prescriptions/Med Rec: No Action No Known Home Medications Referrals: Jasper Farrar MD [Primary Care Provider, Family Practice] Jewels Rodríguez MD [Physician, General Surgery] Patient/Caregiver Discharge Instructions Other Discharge Activity Instructions:: Avoid lifting objects greater than 10 pounds for 6 weeks May resume showering in 2 days, on 04/05 Avoid bathing or swimming for 2 weeks If you develop worsening pain, nausea/vomiting, fever or signs of jaundice please seek care in ER For any nonemergent concern please feel free to call the office during business hours (M-F 8-4pm except 12-1pm for lunch) at [phone] Print Language: Croatian
--- NOTE | 2025-04-04 11:13 | XR_ITS ---
Examination: Abdomen sonogram, Limited Date and time of exam: April 04, 2025, 1406 hours INDICATIONS: Elevated liver function tests on laboratory examination 2 days ago Technique: Real-time daly scale transabdominal sonographic images of the upper abdomen obtained. Findings: Absent gallbladder Normal common bile duct 0.3 cm Pancreatic head 3.3 cm Liver 13.2 cm fatty infiltration Normal hepatopetal portal venous flow Patent IVC IMPRESSION: Absent gallbladder Normal common bile duct
[2025-04-04] MEDS: HYDROcodone/APAP 5/325 TABLET 1 TAB PO (15:37)
--- NOTE | 2025-04-04 17:40 | ESPR_ITS ---
<Statement entered by Huy Joseph MD - 04/09/25 15:24> I reviewed above note and agree with findings and plans. I have also personally examined the patient with medicine team and went over assessment and plan with medical team including physician general internal medicine and resident physician. <Statement entered by Jennifer Alexander MD - 04/04/25 21:48> Pt is seen at bedside, POD1 cholecystectomy. Pt has marked transiminitis (AST [id number]) and total billirubin 2.8), Will monitor one more day and order liver US. Patient was seen and examined by me personally. I have directly supervised and reviewed documentation by the team resident and agree with its findings. ------- Plan of care was discussed with the attending, Dr. Jake Alexander, PGY-2 Documentation for date of: 04/04/25 Subjective Subjective Interval history: * Patient seen and examined at bedside. * Postop day 1 from cholecystectomy. * Patient has transaminitis and leukocytosis on morning labs, liver ultrasound ordered. Exam Vital Signs Temp Pulse Resp BP Pulse Ox O2 Del Method O2 Flow Rate 98.4 F 70 18 144/69 H 95 Room Air 4 04/04/25 16:00 04/04/25 16:00 04/04/25 16:00 04/04/25 16:00 04/04/25 16:00 04/04/25 16:00 04/03/25 15:47 Narrative Exam General: Awake and in no acute distress. Conversational and non-toxic appearing. Neurologic: GCS 15. Alert and oriented x3, no gross neurological deficit, and patient able to move all 4 extremities. HEENT: Normocephalic, atraumatic, mucous membranes moist. Pupils reactive to light. Heart: Regular rate and rhythm, normal S1 and S2, no murmurs. Lungs: Clear to auscultation bilaterally with no wheezing or crackles. Abdomen: Laparoscopic surgical scars right upper extremity, no sign of infection . Soft, nondistended, diffusely tender, positive bowel sounds. No guarding or rebound tenderness. Extremities: No edema. 2+ radial and dorsalis pedis pulses bilaterally. Skin: Warm. Dry. No rash or ecchymoses. Objective Labs 04/04/25 08:30 04/04/25 08:30 Labs: Laboratory Results - last 24 hr 04/04/25 08:30 WBC 18.3 H RBC 4.25 Hgb 12.4 Hct 37.4 MCV 88 MCH 29.2 MCHC 33.2 RDW Std Deviation 42.5 Plt Count 360 Neut % (Auto) 87 H Lymph % (Auto) 8 L [place] % (Auto) 5 Eos % (Auto) 0 Baso % (Auto) 0 Neut # (Auto) 15.9 H Lymph # (Auto) 1.5 [place] # (Auto) 0.9 H Eos # (Auto) 0.0 Baso # (Auto) 0.0 Immature Gran # (Auto) 0.05 H Absolute Nucleated RBC 0.00 Immature Gran % 0 Nucleated RBC % 0 Sodium 140 Potassium 4.1 Chloride 106 Carbon Dioxide 23.4 Anion Gap 11 BUN 9 Creatinine 0.8 Estim Creat Clear Calc 65.7 eGFR > 60 BUN/Creatinine Ratio 11 L Glucose 157 H Calculated Osmolality 281 Calcium 9.1 Corrected Calcium 9.1 Total Bilirubin 2.8 H D AST 991 H* ALT 1084 H* Alkaline Phosphatase 213 H D Total Protein 7.2 Albumin 4.4 Globulin 2.8 Albumin/Globulin Ratio 1.6 Quality Measures Quality Measures none Assessment & Plan Assessment Current Active Medications: Generic Name Dose Route Start Last Admin Trade Name Freq PRN Reason Stop Dose Admin Acetaminophen 650 mg 04/03/25 05:58 Acetaminophen 325 Mg Tablet PO 05/03/25 05:57 Q6H PRN Fever >100.4 or pain 1-3 Hydrocodone Bitart/Acetaminophen 1 tab 04/03/25 16:35 04/04/25 15:37 Hydrocodone/Apap 5/325 Tablet PO 04/08/25 16:34 1 tab Q4HR PRN Administration PAIN SCALE 4-10(Mod-Sev Ondansetron HCl 4 mg 04/03/25 05:58 Ondansetron Inj 2 Mg/Ml Inj 2 Ml IVP 05/03/25 05:57 Q6H PRN NAUSEA OR VOMITING Protocol Sennosides 1 tab 04/03/25 05:58 Senna Tablet PO 05/03/25 05:57 QDAY PRN constipation Protocol Plan Summary: Carole Freire is 59 yr female with no significant PMH who presented to the ED on 04/02 with progressive RUQ pain. Admitted for acute cholelithiasis/cholecystitis, s/p cholecystectomy with Dr. Rodríguez. #Acute cholecystitis #Leukocytosis #Transaminitis * Initial presentation: Biliary colic for 1 week, RUQ progressively worsening and constant x1 day. No N/V. * Gallbladder US: Cholelithiasis. CBD 0.3 cm. * CT a/p: cholelithiasis, cholecystitis, pericecal lymphadenopathy * Received IV Rocephin (ED), cipro and flagyl x 1 dose each prior to cholecystectomy * 04/03: Cholecystectomy with Dr. Rodríguez * Postop day 1 the patient had WBC of 18.3, AST 991 and ALT 1084 * Liver ultrasound showed Liver to be 13.2 cm with fatty infiltration, Normal hepatopetal portal venous flow, Patent IVC Plan: * Dr. Rodríguez consulted, appreciate recommendations * Clear liquid diet - advance as tolerated * Zofran prn * CTM vitals, CBC # Gram-negative ingrid UTI * Patient is asymptomatic Plan: * No direct invention at this time Checklist Dispo: Med/tele, postop day 1 from cholecystectomy, liver ultrasound ordered in the presence of transaminitis and elevated white blood cell count, no concerning findings minus fatty infiltration. Will likely discharge tomorrow. Lines: PIV Diet: Clear liquid diet - advance as tolerated Bowel Reg: Senna PRN VTE ppx: SCDs GI ppx: Not indicated Pain mgmt: Tylenol PO PRN, [place] 5 mg PO q4h Code status: Full Patient was seen and discussed with my attending physician Dr. Jake HOWE and my senior resident Dr. Benjamin HOWE PGY-2. Juan Richmond DO PGY-1.
[2025-04-05] VITALS (7 sets, daily range): BP systolic 116–149; BP diastolic 72–90; PULSE 73–87; RESP 16–94; TEMP 36.6–36.9; O2SAT 92–95
[2025-04-05 05:54] LABS: Basophils # (Auto) 0.0 Thou/mm3 (0.0-0.2); Basophils % (Auto) 0 % (0-2.5); Eosinophils # (Auto) 0.1 Thou/mm3 (0.0-0.5); Eosinophils % (Auto) 1 % (0-10); Hematocrit 34.8 % (36.0-46.0); Hemoglobin 11.5 g/dL (12.0-16.0); Immature Granulocytes Auto 0.05 Thou/mm3 (0.00-0.00); Lymphocytes # (Auto) 2.4 Thou/mm3 (1.0-4.8); Lymphocytes % (Auto) 20 % (10-50); Mean Corpuscular HGB Conc 33.0 g/dl (31.0-37.0); Mean Corpuscular Hemoglobin 29.3 pg (25.0-35.0); Mean Corpuscular Volume 89 fL (80-100); Monocytes # (Auto) 0.7 Thou/mm3 (0.0-0.8); Monocytes % (Auto) 6 % (0-12); Neutrophils # (Auto) 9.0 Thou/mm3 (1.8-7.7); Neutrophils % (Auto) 73 % (37-80); Nucleated Red Blood Cell # 0.00 Thou/mm3 (0.00-0.00); Nucleated Red Blood Cell % 0 /100 WBC (0); Platelet Count 334 Thou/mm3 (140-440); RDW Standard Deviation 43.9 fL (36.4-46.3); Red Blood Count 3.92 Miln/mm3 (4.00-5.20); White Blood Count 12.3 Thou/mm3 (3.6-11.0)
[2025-04-05 06:55] LABS: Alanine Aminotransferase 812 U/L (10-49); Albumin, Serum 3.9 gm/dL (3.5-5.0); Albumin/Globulin Ratio 1.7 (1.2-2.2); Alkaline Phosphatase 200 U/L (46-116); Aspartate Amino Transferase 444 U/L (0-34); BUN/Creatinine Ratio 10 Ratio (12-20); Bilirubin,Total 2.3 mg/dL (0.3-1.2); Blood Urea Nitrogen 7 mg/dL (9-23); Calcium 8.8 mg/dL (8.3-10.6); Calcium (Corrected) 8.9 mg/dL (8.5-10.1); Chloride 107 mMol/L (98-107); Creatinine (Component) 0.7 mg/dL (0.6-1.3); Estimated Creatinine Clearance 75.1 mL/min (>60); Globulin 2.3 gm/dL (2.3-3.5); Glucose 117 mg/dL (74-106); Osmolality,Calculated 283 (275-295); Potassium 3.8 mMol/L (3.4-5.1); Sodium 143 mMol/L (136-145); Total Protein 6.2 gm/dL (5.7-8.2); eGFR > 60 See Note
[2025-04-05 07:02] LABS: Anion Gap 10 (7-16); Carbon Dioxide 25.6 mMol/L (20.0-31.0)
--- NOTE | 2025-04-05 10:21 | ESPR_ITS ---
<Statement entered by Huy Joseph MD - 04/17/25 08:30> I reviewed above note and agree with findings and plans. I have also personally examined the patient with medicine team and went over assessment and plan with medical team including international freight forwarder and resident physician. Documentation for date of: 04/05/25 Subjective Subjective Interval history: * Patient seen and examined at bedside. * Postop day 2 from laparoscopic cholecystectomy. * Liver ultrasound showed fatty infiltrated liver with a normal CBD. * WBC trending down. * AST ALT trending down. * Will continue to monitor transaminitis. Exam Vital Signs Temp Pulse Resp BP Pulse Ox O2 Del Method O2 Flow Rate 97.8 F 80 17 139/78 H 94 L Room Air 4 04/05/25 08:00 04/05/25 08:00 04/05/25 08:00 04/05/25 08:00 04/05/25 08:00 04/05/25 08:00 04/03/25 15:47 Narrative Exam General: Awake and in no acute distress. Conversational and non-toxic appearing. Neurologic: GCS 15. Alert and oriented x3, no gross neurological deficit, and patient able to move all 4 extremities. HEENT: Normocephalic, atraumatic, mucous membranes moist. Pupils reactive to light. Heart: Regular rate and rhythm, normal S1 and S2, no murmurs. Lungs: Clear to auscultation bilaterally with no wheezing or crackles. Abdomen: Laparoscopic surgical scars right upper extremity, no sign of infection . Soft, nondistended, diffusely tender, positive bowel sounds. No guarding or rebound tenderness. Extremities: No edema. 2+ radial and dorsalis pedis pulses bilaterally. Skin: Warm. Dry. No rash or ecchymoses. Objective Labs 04/05/25 05:10 04/05/25 05:10 Labs: Laboratory Results - last 24 hr 04/05/25 05:10 WBC 12.3 H D RBC 3.92 L Hgb 11.5 L Hct 34.8 L MCV 89 MCH 29.3 MCHC 33.0 RDW Std Deviation 43.9 Plt Count 334 Neut % (Auto) 73 Lymph % (Auto) 20 [place] % (Auto) 6 Eos % (Auto) 1 Baso % (Auto) 0 Neut # (Auto) 9.0 H Lymph # (Auto) 2.4 [place] # (Auto) 0.7 Eos # (Auto) 0.1 Baso # (Auto) 0.0 Immature Gran # (Auto) 0.05 H Absolute Nucleated RBC 0.00 Immature Gran % 0 Nucleated RBC % 0 Sodium 143 Potassium 3.8 Chloride 107 Carbon Dioxide 25.6 Anion Gap 10 BUN 7 L Creatinine 0.7 Estim Creat Clear Calc 75.1 eGFR > 60 BUN/Creatinine Ratio 10 L Glucose 117 H Calculated Osmolality 283 Calcium 8.8 Corrected Calcium 8.9 Total Bilirubin 2.3 H D AST 444 H ALT 812 H* Alkaline Phosphatase 200 H Total Protein 6.2 Albumin 3.9 D Globulin 2.3 Albumin/Globulin Ratio 1.7 Quality Measures Quality Measures none Assessment & Plan Assessment Current Active Medications: Generic Name Dose Route Start Last Admin Trade Name Freq PRN Reason Stop Dose Admin Acetaminophen 650 mg 04/03/25 05:58 Acetaminophen 325 Mg Tablet PO 05/03/25 05:57 Q6H PRN Fever >100.4 or pain 1-3 Hydrocodone Bitart/Acetaminophen 1 tab 04/03/25 16:35 04/04/25 15:37 Hydrocodone/Apap 5/325 Tablet PO 04/08/25 16:34 1 tab Q4HR PRN Administration PAIN SCALE 4-10(Mod-Sev Docusate Sodium 100 mg 04/05/25 06:53 Docusate Sod 100 Mg Capsule PO 05/05/25 06:52 QDAY PRN CONSTIPATION Protocol Ondansetron HCl 4 mg 04/03/25 05:58 Ondansetron Inj 2 Mg/Ml Inj 2 Ml IVP 05/03/25 05:57 Q6H PRN NAUSEA OR VOMITING Protocol Sennosides 1 tab 04/03/25 05:58 Senna Tablet PO 05/03/25 05:57 QDAY PRN constipation Protocol Plan Summary: Carole Freire is 59 yr female with no significant PMH who presented to the ED on 04/02 with progressive RUQ pain. Admitted for acute cholelithiasis/cholecystitis, s/p cholecystectomy with Dr. Rodríguez. #Acute cholecystitis #Leukocytosis #Transaminitis * Initial presentation: Biliary colic for 1 week, RUQ progressively worsening and constant x1 day. No N/V. * Gallbladder US: Cholelithiasis. CBD 0.3 cm on admission * CT a/p: cholelithiasis, cholecystitis, pericecal lymphadenopathy * Received IV Rocephin (ED), cipro and flagyl x 1 dose each prior to cholecystectomy * 04/03: Cholecystectomy with Dr. Rodríguez * Liver ultrasound status post cholecystectomy showed Liver to be 13.2 cm with fatty infiltration, Normal hepatopetal portal venous flow, Patent IVC * Postop day 2 the patient has WBC of 12.3, AST 444 and ALT 812 Plan: * Dr. Rodríguez consulted, appreciate recommendations * Regular diet * Zofran prn * Will follow LFTs and WBC # Gram-negative ingrid UTI * Patient is asymptomatic Plan: * No direct invention at this time Checklist Dispo: Med/tele, postop day 2 from cholecystectomy, LFTs remain elevated and are downtrending, leukocytosis downtrending. Lines: PIV Diet: Regular diet Bowel Reg: Senna PRN VTE ppx: Patient is able to ambulate. GI ppx: Not indicated Pain mgmt: Tylenol PO PRN, [place] 5 mg PO q4h Code status: Full Patient was seen and discussed with my attending physician Dr. Jake HOWE. Juan Richmond DO PGY-1.
--- NOTE | 2025-04-05 11:19 | PC.SS ---
Patient is alert/oriented. Patient was able to verify demographics. Patient was admitted for cholecysstitis. Patient is independent with ADL's. Patient does not use DME. Patient resides with her and son. Patient states she drives herself to appointments. PCP: [facility] and last appt. was in 2000. Patient needs to get re-established again with PCP. Pharmacy: [facility]. Patient discharge plan is to return home. Alt medical decision maker: lorena Guy, Transportation: family
--- NOTE | 2025-04-05 14:55 | PD.SURPROG ---
Documentation for date of: 04/05/25 Subjective Subjective Brief History: 59F presenting with abdominal pain. Pt reports she developed RUQ pain yesterday similar to episodes she has experienced after eating, though this time it was not provoked by a meal. Pain was 8/10 and associated with shortness of breath but she denies nausea, fever and diarrhea. At the moment pt feels pain is 2/10, she is a little hungry but afraid to eat and provoke the pain. In ER her WBC is 20, LFTs elevated with normal bilirubin and US shows cholelithiasis but no cholecystitis PMH: None PSHx: None Meds: None Allergies: NKDA Social hx: Nonsmoker Narrative: Pt remaining hospitalized due to elevation of LFTs, underwent US yesterday showing normal CBD. Pt reports feeling very well with little to no pain, has not had any medications today and is tolerating low fat diet with no nausea or fever. Passing gas has not yet had BM Exam Vital Signs Temp Pulse Resp BP Pulse Ox O2 Del Method O2 Flow Rate 98.0 F 76 18 135/85 H 95 Room Air 4 04/05/25 12:00 04/05/25 12:00 04/05/25 12:00 04/05/25 12:00 04/05/25 12:00 04/05/25 12:00 04/03/25 15:47 Constitutional Constitutional: no acute distress Routine Respiratory Exam Respiratory: Present no resp distress Routine Abdominal Exam Abdominal: Present soft; Absent tenderness or distended Results Results: Laboratory Laboratory results: results reviewed Assessment & Plan Plan 59F otherwise healthy presenting with signs and symptoms of biliary colic/early acute cholecystitis s/p lap delonte 04/03, recovering well overall. Postop labs are noted, not unexpected in the setting of extensive cauterization of the gallbladder bed PROCEDURES: Procedures Laparoscopic cholecystectomy
[2025-04-06] VITALS (8 sets, daily range): BP systolic 132–151; BP diastolic 66–80; PULSE 70–83; RESP 15–96; TEMP 36.2–36.9; O2SAT 92–98; BMI 27.3
[2025-04-06 05:12] LABS: Basophils # (Auto) 0.0 Thou/mm3 (0.0-0.2); Basophils % (Auto) 0 % (0-2.5); Eosinophils # (Auto) 0.2 Thou/mm3 (0.0-0.5); Eosinophils % (Auto) 2 % (0-10); Hematocrit 35.7 % (36.0-46.0); Hemoglobin 12.0 g/dL (12.0-16.0); Immature Granulocytes Auto 0.04 Thou/mm3 (0.00-0.00); Lymphocytes # (Auto) 3.1 Thou/mm3 (1.0-4.8); Lymphocytes % (Auto) 30 % (10-50); Mean Corpuscular HGB Conc 33.6 g/dl (31.0-37.0); Mean Corpuscular Hemoglobin 29.9 pg (25.0-35.0); Mean Corpuscular Volume 89 fL (80-100); Monocytes # (Auto) 0.6 Thou/mm3 (0.0-0.8); Monocytes % (Auto) 6 % (0-12); Neutrophils # (Auto) 6.4 Thou/mm3 (1.8-7.7); Neutrophils % (Auto) 62 % (37-80); Nucleated Red Blood Cell # 0.00 Thou/mm3 (0.00-0.00); Nucleated Red Blood Cell % 0 /100 WBC (0); Platelet Count 304 Thou/mm3 (140-440); RDW Standard Deviation 44.4 fL (36.4-46.3); Red Blood Count 4.02 Miln/mm3 (4.00-5.20); White Blood Count 10.4 Thou/mm3 (3.6-11.0)
[2025-04-06 05:41] LABS: Alanine Aminotransferase 632 U/L (10-49); Albumin, Serum 3.9 gm/dL (3.5-5.0); Albumin/Globulin Ratio 1.6 (1.2-2.2); Alkaline Phosphatase 213 U/L (46-116); Anion Gap 9 (7-16); Aspartate Amino Transferase 261 U/L (0-34); BUN/Creatinine Ratio 12 Ratio (12-20); Bilirubin,Total 1.5 mg/dL (0.3-1.2); Blood Urea Nitrogen 7 mg/dL (9-23); Calcium 8.7 mg/dL (8.3-10.6); Calcium (Corrected) 8.8 mg/dL (8.5-10.1); Carbon Dioxide 27.8 mMol/L (20.0-31.0); Chloride 106 mMol/L (98-107); Creatinine (Component) 0.6 mg/dL (0.6-1.3); Estimated Creatinine Clearance 87.7 mL/min (>60); Globulin 2.4 gm/dL (2.3-3.5); Glucose 118 mg/dL (74-106); Osmolality,Calculated 283 (275-295); Potassium 4.0 mMol/L (3.4-5.1); Sodium 143 mMol/L (136-145); Total Protein 6.3 gm/dL (5.7-8.2); eGFR > 60 See Note
[2025-04-06] MEDS: DOCUSATE SOD 100 MG CAPSULE PO (07:08)
[2025-04-06 11:21] LABS: Alanine Aminotransferase 645 U/L (10-49); Albumin, Serum 3.8 gm/dL (3.5-5.0); Albumin/Globulin Ratio 1.7 (1.2-2.2); Alkaline Phosphatase 219 U/L (46-116); Anion Gap 9 (7-16); Aspartate Amino Transferase 268 U/L (0-34); BUN/Creatinine Ratio 15 Ratio (12-20); Bilirubin,Total 1.5 mg/dL (0.3-1.2); Blood Urea Nitrogen 9 mg/dL (9-23); Calcium 8.6 mg/dL (8.3-10.6); Calcium (Corrected) 8.8 mg/dL (8.5-10.1); Carbon Dioxide 28.4 mMol/L (20.0-31.0); Chloride 105 mMol/L (98-107); Creatinine (Component) 0.6 mg/dL (0.6-1.3); Estimated Creatinine Clearance 87.7 mL/min (>60); Globulin 2.2 gm/dL (2.3-3.5); Glucose 114 mg/dL (74-106); Osmolality,Calculated 282 (275-295); Potassium 4.5 mMol/L (3.4-5.1); Sodium 142 mMol/L (136-145); Total Protein 6.0 gm/dL (5.7-8.2); eGFR > 60 See Note
[2025-04-06 14:48] LABS: Alanine Aminotransferase 661 U/L (10-49); Albumin, Serum 4.3 gm/dL (3.5-5.0); Albumin/Globulin Ratio 1.5 (1.2-2.2); Alkaline Phosphatase 243 U/L (46-116); Anion Gap 10 (7-16); Aspartate Amino Transferase 302 U/L (0-34); BUN/Creatinine Ratio 13 Ratio (12-20); Bilirubin,Total 1.1 mg/dL (0.3-1.2); Blood Urea Nitrogen 10 mg/dL (9-23); Calcium 9.1 mg/dL (8.3-10.6); Calcium (Corrected) 9.1 mg/dL (8.5-10.1); Carbon Dioxide 27.3 mMol/L (20.0-31.0); Chloride 104 mMol/L (98-107); Creatinine (Component) 0.8 mg/dL (0.6-1.3); Estimated Creatinine Clearance 65.7 mL/min (>60); Globulin 2.8 gm/dL (2.3-3.5); Glucose 145 mg/dL (74-106); Osmolality,Calculated 283 (275-295); Potassium 3.9 mMol/L (3.4-5.1); Sodium 141 mMol/L (136-145); Total Protein 7.1 gm/dL (5.7-8.2); eGFR > 60 See Note
--- NOTE | 2025-04-06 15:14 | ESPR_ITS ---
<Statement entered by Huy Joseph MD - 04/17/25 08:31> I reviewed above note and agree with findings and plans. I have also personally examined the patient with medicine team and went over assessment and plan with medical team including purchasing internship and resident physician. Documentation for date of: 04/06/25 Subjective Subjective Interval history: * Patient seen and examined at bedside. * Patient is tolerating diet. * AST and ALT down trended and then up trended. * T. bili down trended. * Leukocytosis resolved. Exam Vital Signs Temp Pulse Resp BP Pulse Ox O2 Del Method O2 Flow Rate 97.2 F 83 18 134/70 H 95 Room Air 4 04/06/25 11:44 04/06/25 11:44 04/06/25 11:44 04/06/25 11:44 04/06/25 11:44 04/06/25 11:44 04/03/25 15:47 Narrative Exam General: Awake and in no acute distress. Conversational and non-toxic appearing. Neurologic: GCS 15. Alert and oriented x3, no gross neurological deficit, and patient able to move all 4 extremities. HEENT: Normocephalic, atraumatic, mucous membranes moist. Pupils reactive to light. Heart: Regular rate and rhythm, normal S1 and S2, no murmurs. Lungs: Clear to auscultation bilaterally with no wheezing or crackles. Abdomen: Laparoscopic surgical scars right upper extremity, no sign of infection . Soft, nondistended, nontender. No guarding or rebound tenderness. Extremities: No edema. 2+ radial and dorsalis pedis pulses bilaterally. Skin: Warm. Dry. No rash or ecchymoses. Objective Labs 04/06/25 04:45 04/06/25 14:10 Labs: Laboratory Results - last 24 hr 04/06/25 04/06/25 04/06/25 04:45 04:45 04:45 WBC 10.4 RBC 4.02 Hgb 12.0 Hct 35.7 L MCV 89 MCH 29.9 MCHC 33.6 RDW Std Deviation 44.4 Plt Count 304 D Neut % (Auto) 62 Lymph % (Auto) 30 [place] % (Auto) 6 Eos % (Auto) 2 Baso % (Auto) 0 Neut # (Auto) 6.4 Lymph # (Auto) 3.1 [place] # (Auto) 0.6 Eos # (Auto) 0.2 Baso # (Auto) 0.0 Immature Gran # (Auto) 0.04 H Absolute Nucleated RBC 0.00 Immature Gran % 0 Nucleated RBC % 0 Sodium 143 142 Potassium 4.0 4.5 D Chloride 106 Carbon Dioxide Anion Gap BUN Creatinine Estim Creat Clear Calc eGFR BUN/Creatinine Ratio Glucose Calculated Osmolality Calcium Corrected Calcium Total Bilirubin AST ALT Alkaline Phosphatase Total Protein Albumin Globulin Albumin/Globulin Ratio 04/06/25 04/06/25 04/06/25 04:45 04:45 04:45 WBC RBC Hgb Hct MCV MCH MCHC RDW Std Deviation Plt Count Neut % (Auto) Lymph % (Auto) [place] % (Auto) Eos % (Auto) Baso % (Auto) Neut # (Auto) Lymph # (Auto) [place] # (Auto) Eos # (Auto) Baso # (Auto) Immature Gran # (Auto) Absolute Nucleated RBC Immature Gran % Nucleated RBC % Sodium Potassium Chloride 105 Carbon Dioxide 27.8 28.4 Anion Gap 9 9 BUN 7 L Creatinine Estim Creat Clear Calc eGFR BUN/Creatinine Ratio Glucose Calculated Osmolality Calcium Corrected Calcium Total Bilirubin AST ALT Alkaline Phosphatase Total Protein Albumin Globulin Albumin/Globulin Ratio 04/06/25 04/06/25 04/06/25 04:45 04:45 04:45 WBC RBC Hgb Hct MCV MCH MCHC RDW Std Deviation Plt Count Neut % (Auto) Lymph % (Auto) [place] % (Auto) Eos % (Auto) Baso % (Auto) Neut # (Auto) Lymph # (Auto) [place] # (Auto) Eos # (Auto) Baso # (Auto) Immature Gran # (Auto) Absolute Nucleated RBC Immature Gran % Nucleated RBC % Sodium Potassium Chloride Carbon Dioxide Anion Gap BUN 9 Creatinine 0.6 0.6 Estim Creat Clear Calc 87.7 87.7 eGFR > 60 BUN/Creatinine Ratio Glucose Calculated Osmolality Calcium Corrected Calcium Total Bilirubin AST ALT Alkaline Phosphatase Total Protein Albumin Globulin Albumin/Globulin Ratio 04/06/25 04/06/25 04/06/25 04:45 04:45 04:45 WBC RBC Hgb Hct MCV MCH MCHC RDW Std Deviation Plt Count Neut % (Auto) Lymph % (Auto) [place] % (Auto) Eos % (Auto) Baso % (Auto) Neut # (Auto) Lymph # (Auto) [place] # (Auto) Eos # (Auto) Baso # (Auto) Immature Gran # (Auto) Absolute Nucleated RBC Immature Gran % Nucleated RBC % Sodium Potassium Chloride Carbon Dioxide Anion Gap BUN Creatinine Estim Creat Clear Calc eGFR > 60 BUN/Creatinine Ratio 12 15 Glucose 118 H 114 H Calculated Osmolality 283 Calcium Corrected Calcium Total Bilirubin AST ALT Alkaline Phosphatase Total Protein Albumin Globulin Albumin/Globulin Ratio 04/06/25 04/06/25 04/06/25 04:45 04:45 04:45 WBC RBC Hgb Hct MCV MCH MCHC RDW Std Deviation Plt Count Neut % (Auto) Lymph % (Auto) [place] % (Auto) Eos % (Auto) Baso % (Auto) Neut # (Auto) Lymph # (Auto) [place] # (Auto) Eos # (Auto) Baso # (Auto) Immature Gran # (Auto) Absolute Nucleated RBC Immature Gran % Nucleated RBC % Sodium Potassium Chloride Carbon Dioxide Anion Gap BUN Creatinine Estim Creat Clear Calc eGFR BUN/Creatinine Ratio Glucose Calculated Osmolality 282 Calcium 8.7 8.6 Corrected Calcium 8.8 8.8 Total Bilirubin 1.5 H D AST ALT Alkaline Phosphatase Total Protein Albumin Globulin Albumin/Globulin Ratio 04/06/25 04/06/25 04/06/25 04:45 04:45 04:45 WBC RBC Hgb Hct MCV MCH MCHC RDW Std Deviation Plt Count Neut % (Auto) Lymph % (Auto) [place] % (Auto) Eos % (Auto) Baso % (Auto) Neut # (Auto) Lymph # (Auto) [place] # (Auto) Eos # (Auto) Baso # (Auto) Immature Gran # (Auto) Absolute Nucleated RBC Immature Gran % Nucleated RBC % Sodium Potassium Chloride Carbon Dioxide Anion Gap BUN Creatinine Estim Creat Clear Calc eGFR BUN/Creatinine Ratio Glucose Calculated Osmolality Calcium Corrected Calcium Total Bilirubin 1.5 H AST 261 H 268 H ALT 632 H* 645 H* Alkaline Phosphatase 213 H Total Protein Albumin Globulin Albumin/Globulin Ratio 04/06/25 04/06/25 04/06/25 04:45 04:45 04:45 WBC RBC Hgb Hct MCV MCH MCHC RDW Std Deviation Plt Count Neut % (Auto) Lymph % (Auto) [place] % (Auto) Eos % (Auto) Baso % (Auto) Neut # (Auto) Lymph # (Auto) [place] # (Auto) Eos # (Auto) Baso # (Auto) Immature Gran # (Auto) Absolute Nucleated RBC Immature Gran % Nucleated RBC % Sodium Potassium Chloride Carbon Dioxide Anion Gap BUN Creatinine Estim Creat Clear Calc eGFR BUN/Creatinine Ratio Glucose Calculated Osmolality Calcium Corrected Calcium Total Bilirubin AST ALT Alkaline Phosphatase 219 H Total Protein 6.3 6.0 Albumin 3.9 3.8 Globulin 2.4 Albumin/Globulin Ratio 04/06/25 04/06/25 04/06/25 04:45 04:45 14:10 WBC RBC Hgb Hct MCV MCH MCHC RDW Std Deviation Plt Count Neut % (Auto) Lymph % (Auto) [place] % (Auto) Eos % (Auto) Baso % (Auto) Neut # (Auto) Lymph # (Auto) [place] # (Auto) Eos # (Auto) Baso # (Auto) Immature Gran # (Auto) Absolute Nucleated RBC Immature Gran % Nucleated RBC % Sodium 141 Potassium 3.9 D Chloride 104 Carbon Dioxide 27.3 Anion Gap 10 BUN 10 Creatinine 0.8 Estim Creat Clear Calc 65.7 eGFR > 60 BUN/Creatinine Ratio 13 Glucose 145 H Calculated Osmolality 283 Calcium 9.1 Corrected Calcium 9.1 Total Bilirubin 1.1 AST 302 H ALT 661 H* Alkaline Phosphatase 243 H D Total Protein 7.1 Albumin 4.3 D Globulin 2.2 L 2.8 Albumin/Globulin Ratio 1.6 1.7 1.5 Quality Measures Quality Measures none Assessment & Plan Assessment Current Active Medications: Generic Name Dose Route Start Last Admin Trade Name Freq PRN Reason Stop Dose Admin Acetaminophen 650 mg 04/03/25 05:58 Acetaminophen 325 Mg Tablet PO 05/03/25 05:57 Q6H PRN Fever >100.4 or pain 1-3 Hydrocodone Bitart/Acetaminophen 1 tab 04/03/25 16:35 04/04/25 15:37 Hydrocodone/Apap 5/325 Tablet PO 04/08/25 16:34 1 tab Q4HR PRN Administration PAIN SCALE 4-10(Mod-Sev Docusate Sodium 100 mg 04/05/25 06:53 04/06/25 07:08 Docusate Sod 100 Mg Capsule PO 05/05/25 06:52 100 mg QDAY PRN Administration CONSTIPATION Protocol Ondansetron HCl 4 mg 04/03/25 05:58 Ondansetron Inj 2 Mg/Ml Inj 2 Ml IVP 05/03/25 05:57 Q6H PRN NAUSEA OR VOMITING Protocol Sennosides 1 tab 04/03/25 05:58 Senna Tablet PO 05/03/25 05:57 QDAY PRN constipation Protocol Plan Summary: Carole Freire is 59 yr female with no significant PMH who presented to the ED on 04/02 with progressive RUQ pain. Admitted for acute cholelithiasis/cholecystitis, s/p cholecystectomy with Dr. Rodríguez. #Acute cholecystitis #Leukocytosis (Resolved) #Transaminitis * Initial presentation: Biliary colic for 1 week, RUQ progressively worsening and constant x1 day. No N/V. * Gallbladder US: Cholelithiasis. CBD 0.3 cm on admission * CT a/p: cholelithiasis, cholecystitis, pericecal lymphadenopathy * Received IV Rocephin (ED), cipro and flagyl x 1 dose each prior to cholecystectomy * 04/03: Cholecystectomy with Dr. Rodríguez * Liver ultrasound status post cholecystectomy showed Liver to be 13.2 cm with fatty infiltration, Normal hepatopetal portal venous flow, Patent IVC * Postop day 3 the patient has AST 261, ALT 632, alk phos 213. Repeat CMP showed AST 302, ALT 661, alk phos 243. Total bilirubin 1.1 Plan: * Will follow LFTs * Dr. Rodríguez consulted, appreciate recommendations * Regular diet * Zofran prn # Gram-negative ingrid UTI * Patient is asymptomatic Plan: * No direct invention at this time Checklist Dispo: Med/tele, postop day 3 from cholecystectomy, LFTs down trended then up trended. Will monitor for significant LFT downtrend prior to discharge. Total bilirubin resolved, leukocytosis resolved. Lines: PIV Diet: Regular diet Bowel Reg: Senna PRN VTE ppx: Patient is able to ambulate. GI ppx: Not indicated Pain mgmt: Tylenol PO PRN, [place] 5 mg PO q4h Code status: Full Patient was seen and discussed with my attending physician Dr. Jake HOWE. Juan Richmond DO PGY-1.
[2025-04-07] VITALS: BP 129/76; PULSE 72; RESP 17; TEMP 36.9; O2SAT 96
[2025-04-07 04:00] VITALS: BP 134/79; PULSE 71; RESP 17; TEMP 36.4; O2SAT 94
[2025-04-07 06:05] LABS: Basophils # (Auto) 0.1 Thou/mm3 (0.0-0.2); Basophils % (Auto) 1 % (0-2.5); Eosinophils # (Auto) 0.3 Thou/mm3 (0.0-0.5); Eosinophils % (Auto) 3 % (0-10); Hematocrit 36.1 % (36.0-46.0); Hemoglobin 11.7 g/dL (12.0-16.0); Immature Granulocytes Auto 0.05 Thou/mm3 (0.00-0.00); Lymphocytes # (Auto) 3.0 Thou/mm3 (1.0-4.8); Lymphocytes % (Auto) 30 % (10-50); Mean Corpuscular HGB Conc 32.4 g/dl (31.0-37.0); Mean Corpuscular Hemoglobin 28.9 pg (25.0-35.0); Mean Corpuscular Volume 89 fL (80-100); Monocytes # (Auto) 0.5 Thou/mm3 (0.0-0.8); Monocytes % (Auto) 5 % (0-12); Neutrophils # (Auto) 6.3 Thou/mm3 (1.8-7.7); Neutrophils % (Auto) 61 % (37-80); Nucleated Red Blood Cell # 0.00 Thou/mm3 (0.00-0.00); Nucleated Red Blood Cell % 0 /100 WBC (0); Platelet Count 324 Thou/mm3 (140-440); RDW Standard Deviation 44.1 fL (36.4-46.3); Red Blood Count 4.05 Miln/mm3 (4.00-5.20); White Blood Count 10.2 Thou/mm3 (3.6-11.0)
[2025-04-07 06:37] LABS: Alanine Aminotransferase 550 U/L (10-49); Albumin, Serum 4.0 gm/dL (3.5-5.0); Albumin/Globulin Ratio 1.5 (1.2-2.2); Alkaline Phosphatase 225 U/L (46-116); Anion Gap 10 (7-16); Aspartate Amino Transferase 247 U/L (0-34); BUN/Creatinine Ratio 15 Ratio (12-20); Bilirubin,Total 0.9 mg/dL (0.3-1.2); Blood Urea Nitrogen 9 mg/dL (9-23); Calcium 8.8 mg/dL (8.3-10.6); Calcium (Corrected) 8.8 mg/dL (8.5-10.1); Carbon Dioxide 25.7 mMol/L (20.0-31.0); Chloride 106 mMol/L (98-107); Creatinine (Component) 0.6 mg/dL (0.6-1.3); Estimated Creatinine Clearance 87.7 mL/min (>60); Globulin 2.7 gm/dL (2.3-3.5); Glucose 118 mg/dL (74-106); Osmolality,Calculated 282 (275-295); Potassium 4.0 mMol/L (3.4-5.1); Sodium 142 mMol/L (136-145); Total Protein 6.7 gm/dL (5.7-8.2); eGFR > 60 See Note
[2025-04-07 08:00] VITALS: BP 141/75; PULSE 80; RESP 17; TEMP 36.2; O2SAT 96
[2025-04-07 12:00] VITALS: BP 154/76; PULSE 74; RESP 17; TEMP 36.5; O2SAT 97
--- NOTE | 2025-04-07 12:49 | ESDS_ITS ---
<Statement entered by Huy Joseph MD - 04/17/25 08:32> I reviewed above note and agree with findings and plans. I have also personally examined the patient with medicine team and went over assessment and plan with medical team including logistics intern and resident physician. Planned Discharge Date 04/07/25 DS: Providers Provider Date of admission: 04/03/25 05:58 Primary care physician: Jasper Farrar MD Admitting Provider: Ricky Stevenson MD Attending Provider on Admission: Huy Joseph MD Consults: 04/03/25 06:02 Consult to General Surgery Routine Comment: cholecystitis Consulting Provider: Jewels Rodríguez Attending Provider on DC: Huy Joseph MD Discharging Provider: Juan Richmond DO DS: Diagnosis Discharge Diagnosis (1) Calculous cholecystitis: Status: Acute Problem List Completed Was Problem List Reviewed/Reconciled?: Yes Hospital Course Hospital Course Hospital course: Hospital Course: Carole Freire is 59 yr female with no significant PMH who presented to the ED on 04/03/2025 with a complaint of RUQ pain since the night before. Pain was 8/10, non radiating, constant, no associated nausea or vomiting. Patient stated that she had difficulty in standing due to the pain with some shaking.? She denied any fever, diarrhea, dysuria, or headache on presentation.? She had decreased appetite due to the pain.? She typically eats home cooked food. This pain had occurred previously. In ED, vitals were stable. Labs were remarkable for leukocytosis of 20. Bilirubin 0.7, AST 278, ALT 125, ALP 151, lipase 47. Gallbladder ultrasound consistent with cholelithiasis, minimal thickening of the gallbladder wall..? EKG showed a sinus rhythm with a rate of 72 and an incomplete right bundle branch block. UA showed evidence of UTI but patient denied dysuria. ?Patient received 1 g of IV ceftriaxone in the ED. Dr. Rodríguez was consulted and the patient was admitted for acute biliary colic and started on IV ciprofloxacin.? The patient underwent a successful laparoscopic cholecystectomy on 04/03/2025, findings included a gallbladder encased in fat with large stones. Patient was found to have E. coli UTI but was asymptomatic. On postop day 1, the patient had transaminitis with an AST of 991 and an ALT of 1084 and a WBC count of 18.3.? A liver ultrasound showed a normal common bile duct, 13.2 cm liver with fatty infiltration, and a patent IVC. During the patient's hospital stay, the patient's liver enzymes and white blood cell count down trended.? Her diet was advanced and tolerated well.? The patient was stable for discharge. Pt is advised to follow up with PCP to repeat CMP to monitor LFTs. Problem List: #Acute cholecystitis #Leukocytosis #Transaminitis # Gram-negative ingrid UTI Instructions: * Avoid lifting objects greater than 10 pounds for 6 weeks * Avoid bathing or swimming for 2 weeks * If you develop worsening pain, nausea/vomiting, fever or signs of jaundice please seek care in ER * For any nonemergent concern please feel free to call the office during business hours (M-F 8-4pm except 12-1pm for lunch) at [phone] * Continue taking all other home medications as prescribed * Follow-up with PCP within 1-2 weeks of discharge * If you do not have a PCP, then you can follow-up at the [facility] The patient was seen and discussed with my attending physician Dr. Jake HOWE my senior resident Dr. Benjamin HOWE PGY-2. Juan Richmond DO PGY-1 Time Spent with Patient Time attestation: Total time spent providing and/or coordinating discharge services: More than 50% Time spent: Greater than 30 minutes Exam Vital Signs Temp Pulse Resp BP Pulse Ox O2 Del Method O2 Flow Rate 97.7 F 74 17 154/76 H 97 Room Air 4 04/07/25 12:00 04/07/25 12:00 04/07/25 12:00 04/07/25 12:00 04/07/25 12:00 04/07/25 12:04/03/25 15:47 Narrative Exam General: Awake and in no acute distress. Conversational and non-toxic appearing. Neurologic: GCS 15. Alert and oriented x3, no gross neurological deficit, and patient able to move all 4 extremities. HEENT: Normocephalic, atraumatic, mucous membranes moist. Pupils reactive to light. Heart: Regular rate and rhythm, normal S1 and S2, no murmurs. Lungs: Clear to auscultation bilaterally with no wheezing or crackles. Abdomen: Laparoscopic surgical scars right upper extremity, no sign of infectio n. Soft, nondistended, nontender. No guarding or rebound tenderness. Extremities: No edema. 2+ radial and dorsalis pedis pulses bilaterally. Skin: Warm. Dry. No rash or ecchymoses. Discharge Plan Plan Patient Disposition: HOME (Self Care) Patient condition on transfer: Stable Care Plan Goals: Instructions: * Avoid lifting objects greater than 10 pounds for 6 weeks * Avoid bathing or swimming for 2 weeks * If you develop worsening pain, nausea/vomiting, fever or signs of jaundice please seek care in ER * For any nonemergent concern please feel free to call the office during business hours (M-F 8-4pm except 12-1pm for lunch) at [phone] * Continue taking all other home medications as prescribed * Follow-up with PCP within 1-2 weeks of discharge * If you do not have a PCP, then you can follow-up at the [facility] Prescriptions/Referrals Prescriptions/Med Rec: No Action No Known Home Medications Referrals: Jasper Farrar MD [Primary Care Provider, Family Practice] Jewels Rodríguez MD [Physician, General Surgery] Patient/Caregiver Discharge Instructions Other Discharge Activity Instructions:: Avoid lifting objects greater than 10 pounds for 6 weeks May resume showering in 2 days, on 04/05 Avoid bathing or swimming for 2 weeks If you develop worsening pain, nausea/vomiting, fever or signs of jaundice please seek care in ER For any nonemergent concern please feel free to call the office during business hours (M-F 8-4pm except 12-1pm for lunch) at [phone] Education Materials: Abdominal Pain, Cholecystectomy Print Language: Colombian Stand Alone Forms: Phyllis Award Info., Patient Portal Info Letter, DC from Surgery Discharge Order Discharge Orders: Discharge (Routine); Ordered 04/07/25 Ordered By: Juan Richmond Quality Discharge Quality Measures none
== END 2025-04-07 12:52 | disposition home or self-care (01) | DRG 418 ==
LOC: SERX 05:39 → SERHOLD 07:01 → S3NX 09:03
PROVIDERS: Physician Assistant; Surgery; Admitting Provider Internal Medicine; Emergency Provider Emergency Medicine; PCP Family Medicine; Visit Provider Internal Medicine
PROC: 0FT44ZZ Resection of Gallbladder, Percutaneous Endoscopic Approach (ICD-10-PCS; CPT 47562; principal; 2025-04-03 14:45)
DX: K80.12 Calculus of gallbladder with acute and chronic cholecystitis without obstruction (principal); N39.0 Urinary tract infection, site not specified; B96.20 Unspecified Escherichia coli [E. coli] as the cause of diseases classified elsewhere; I45.10 Unspecified right bundle-branch block; K59.00 Constipation, unspecified; K76.0 Fatty (change of) liver, not elsewhere classified
CPT/HCPCS: 36415; 74176; 76705; 80053; 81001; 83690; 83735; 84703; 85025; 85610; 85730; 87077; 87086; 87186; 90686; 93005; 96365; 96366; 96372; 99284; A4217; A4649; J0131; J0694; J0696; J0744; J1100; J1885; J2250; J2405; J2704; J2765; J3010; J3490; J7030; Q0162; A9270; J1836; J9060

== ENCOUNTER 2025-04-16 13:17 | Outpatient (AMB) | payer BC, SELFPAY ==
--- NOTE | 2025-04-16 13:24 | GSCOFFNT_ITS ---
Vital Signs - [facility] 04/16/25 13:25 Height 1.55 m Height Method Measured Weight 65.487 kg Weight Measurement Method Standing Scale BMI 27.2 BP 138/83 H Blood Pressure Source Automatic Cuff Blood Pressure Location Left Upper Arm Position Supine Respiration 18 Pulse 74 Pulse Source Monitor Temp 97.0 F Temp Source Temporal Artery Scan Pulse Oximetry (%) 96 Oxygen Delivery Method Room Air Med/Allergies Allergies & Medications Allergies No Known Allergies Allergy (Verified 04/16/25 13:26) Medication Reconciliation No Known Home Medications 04/03/25 [History Confirmed 04/16/25] MA Intake Visit Data Collection New Patient or Established: Established Patient (seen at [facility] within 3 years) Seen by Clinical Staff ONLY (RN/MA): No Reason for Visit:: 2 WEEK POST OP LAP STEFANIE Pain Present Currently: No Pain Scale Used: Gentile-Escobar/Numerical Brick Molder Hand Required: No PCP or OBGYN visit in last 3 months: Yes Hx Now: No Do You Feel Safe at Home: Yes Authorities Contacted: N/A Smoking Status Smoking Status: Never smoker Immunization / Flu Flu Vaccine in the Last 12 Months: Yes Flu Vaccine Exclusion Criteria: Already Received Past Medical History Past Medical History NEUROLOGIC: Negative Seizures CARDIAC: Negative Congestive Heart Failure RESPIRATORY: Negative Chronic Obstructive Pulmonary Disease (COPD) GENITOURINARY: Negative Renal Disease ENDOCRINE: Negative Diabetes Mellitus Type 1 or Diabetes Mellitus Type 2 OTHER HISTORY: Negative Blood Transfusions, Blood Transfusion Reaction (n/a) or Anesthesia Reactions Social History SMOKING STATUS: Smoking status: Never smoker ALCOHOL: Alcohol Intake: Never HOUSING: Housing: House LIVES WITH: Lives With: Family HPI HPI Narrative 59F otherwise healthy provide who presented with acute cholecystitis s/p laparoscopic cholecystectomy 04/03 here for planned follow-up. Patient states she feels well overall, has no pain except when she bends over, is not taking any medications right now. She has no nausea, her appetite is good and she is having regular bowel movements without any diarrhea. She has no fever ROS Review of Systems Systems Reviewed: All systems reviewed, normal except as documented Objective/Exam General General Appearance: alert, cooperative and well groomed Resp Respiratory exam: Absent respiratory distress Abdominal Abdominal exam: Present soft; Absent distention or tenderness Results Pathology of gallbladder reviewed Assessment & Plan Diagnosis / Problem List (1) Calculous cholecystitis: Status: Acute Assessment & Plan: 59F s/p laparoscopic cholecystectomy 04/03, recovering well. Patient understands she should avoid strenuous activity for 6 weeks postop and all questions were answered Plan: Follow-up as needed Office Procedures GNS Level of Care Nursing/Assessment Patient Status: Established Patient Nursing Assessment/Reassesment: Medication Reconciliation, Update PMH in EMR and Vital Signs Coordination of Care: Complex Care and Chronic Disease 1-5, Education Complex Pt/Fam, Consent,records obtained, informed consent, Results/Orders obtained and Staff clarify orders Established Patient Charge Established Patient Point Assignment: 95 Established Patient Point Charge: EP Level 3 (80-115) Patient Portal Questionaires Social History Living Situation History Housing: House Tobacco History Smoking Status: Never smoker Alcohol History Alcohol Intake: Never Domestic Abuse History Do You Feel Safe at Home: Yes Review of Systems Report any current symptoms Only answer those that you have currently: Past Medical History Past Medical History Have you ever been diagnosed with any of the following: Neurological Problems Seizures: No Cardiology Problems Congestive Heart Failure: No Respiratory Problems Chronic Obstructive Pulmonary Disease (COPD): No Genital/Urinary Problems Renal Disease: No Endocrine Problems Diabetes Mellitus Type 1: No Diabetes Mellitus Type 2: No Other Problems Blood Transfusions: No Blood Transfusion Reaction: No (n/a) Anesthesia Reactions: No
[2025-04-16 13:25] VITALS: BP 138/83; PULSE 74; RESP 18; TEMP 36.1; O2SAT 96; BMI 27.2
== END 2025-04-16 13:49 | disposition home or self-care (01) ==
PROVIDERS: PCP Family Medicine; Referring Provider Family Medicine; Supervising Provider Surgery; Visit Provider Surgery
DX: Z48.815 Encounter for surgical aftercare following surgery on the digestive system (principal)
CPT/HCPCS: 99213; G0463